=== PATIENT | male | born 1995 | race Caucasian/White ===

== ENCOUNTER 2017-06-21 22:03 | Emergency (ER) | payer MEDICAID, OTHER ==
[~2017-06-21 22:03] MED LIST: ALBU1AER INH; METH36 PO; WAL-10TA2 PO
[2017-06-21 22:04] VITALS: BP 139/76; PULSE 65; RESP 16; TEMP 98.7; O2SAT 97
[2017-06-22] MEDS ORDERED: LORazepam 1 MG TAB PO ONE (00:30)
[2017-06-22 00:53] LABS: AUTOMATED NEUTROPHIL # 4.8 TH/MM3 (1.8-7.7); BASOPHIL % 0.5 % (0.0-2.0); EOSINOPHIL # 0.1 TH/MM3 (0-0.4); EOSINOPHIL % 1.4 % (0.0-4.0); HEMATOCRIT 53.6 % (39.0-51.0); LYMPH % 25.6 % (9.0-44.0); LYMPHOCYTE # 1.9 TH/MM3 (1.0-4.8); MEAN CELL VOLUME 84.6 FL (80.0-100.0); MEAN CORPUSCULAR HEMOGLOBIN 29.5 PG (27.0-34.0); MEAN CORPUSCULAR HGB CONC 34.9 % (32.0-36.0); MONO % 7.1 % (0.0-8.0); NEUT % 65.4 % (16.0-70.0); PLATELET COUNT 228 TH/MM3 (150-450); RED BLOOD COUNT 6.33 MIL/MM3 (4.50-5.90); RED CELL DISTRIBUTION WIDTH 12.9 % (11.6-17.2); WHITE BLOOD COUNT 7.3 TH/MM3 (4.0-11.0)
[2017-06-22 00:57] LABS: HEMO FLAGS AUTO DIFF
--- NOTE | 2017-06-22 01:05 | PD ---
HPI Chief Complaint: Psychiatric Symptoms Time Seen by Provider: 00:52 Travel History International Travel<30 days: No Contact w/Intl Traveler<30days: No Traveled to known affect area: No History of Present Illness HPI 21-year-old white male presents to emergency department requesting psychological evaluation. He states that he's been feeling increasingly depressed and having bad thoughts. He states that he is been depressed for many years. He has attempted to hurt himself on several occasions. He states that he attempted overdose in the past, jump out of a tree, perform superficial cutting. He states that he has never been seen by a psychiatrist regarding these episodes. He claims that he had a relationship breakup which has worsened his symptoms. He states that he does not like himself. He does not feel that other people like him either. He would be better off if she were to be . He states that he has had many thoughts of how to hurt himself. He does not have one particular way. He denies any homicidal ideation. No toxic ingestions. He states that he is a healthy person and does not take any medications. He does not smoke, drink or do drugs. PENDING SALE TO [facility] Past Medical History Narrative Medical Asthma ADHD: Yes Blood Disorders: No Diminished Hearing: No Respiratory: Yes (see HPI) Immunizations Current: Yes Tetanus Vaccination: < 5 Years Past Surgical History Surgical History: No Previous Surgery Social History Alcohol Use: Yes Tobacco Use: No Substance Use: No Allergies-Medications (Allergen,Severity, Reaction): Coded Allergies: No Known Allergies (Unverified , 06/22/17) Reported Meds & Prescriptions Reported Meds & Active Scripts Active No Active Prescriptions or Reported Medications Review of Systems Except as stated in HPI: all other systems reviewed are Neg Psychiatric: Positive: Depression, Suicidal Ideations, Mood Disorder, No: Anxiety, Disorder of Thought, Substance Abuse, Homicidal Ideation Physical Exam Narrative GENERAL: Well-nourished, well-developed patient. SKIN: Warm and dry. HEAD: Normocephalic and atraumatic. EYES: No scleral icterus. No injection or drainage. ENT: No nasal drainage noted. Mucous membranes pink. Airway patent. NECK: Supple, trachea midline. Moves head freely without obvious discomfort. CARDIOVASCULAR: Regular rate and rhythm without murmurs, gallops, or rubs. RESPIRATORY: Breath sounds equal bilaterally. No accessory muscle use. GASTROINTESTINAL: Abdomen soft, non-tender, nondistended. EXTREMITIES: No cyanosis or edema. BACK: Nontender without obvious deformity. No CVA tenderness. NEURO: Patient is alert and oriented. no sensorimotor deficits. Nonfocal. Normal speech. PSYCH: No delusions. No auditory or visual hallucinations. Data Data Last Documented VS Vital Signs Date Time Temp Pulse Resp B/P Pulse Ox O2 Delivery O2 Flow Rate FiO2 06/21/17 22:04 98.7 65 16 139/76 97 Room Air Orders Complete Blood Count With Diff (06/22/17 00:28) Comprehensive Metabolic Panel (06/22/17 00:28) Psych Screen (06/22/17 00:28) Drug Screen, Random Urine (06/22/17 00:28) Alcohol (Ethanol) (06/22/17 00:28) Salicylates (Aspirin) (06/22/17 00:28) Tylenol (Acetaminophen) (06/22/17 00:28) Lorazepam (Ativan) (06/22/17 00:30) Labs Laboratory Tests Test 06/22/17 06/22/17 00:40 01:15 White Blood Count 7.3 TH/MM3 Red Blood Count 6.33 MIL/MM3 Hemoglobin 18.7 GM/DL Hematocrit 53.6 % Mean Corpuscular Volume 84.6 FL Mean Corpuscular Hemoglobin 29.5 PG Mean Corpuscular Hemoglobin 34.9 % Concent Red Cell Distribution Width 12.9 % Platelet Count 228 TH/MM3 Mean Platelet Volume 7.9 FL Neutrophils (%) (Auto) 65.4 % Lymphocytes (%) (Auto) 25.6 % Monocytes (%) (Auto) 7.1 % Eosinophils (%) (Auto) 1.4 % Basophils (%) (Auto) 0.5 % Neutrophils # (Auto) 4.8 TH/MM3 Lymphocytes # (Auto) 1.9 TH/MM3 Monocytes # (Auto) 0.5 TH/MM3 Eosinophils # (Auto) 0.1 TH/MM3 Basophils # (Auto) 0.0 TH/MM3 CBC Comment AUTO DIFF Differential Comment AUTO DIFF CONFIRMED Platelet Estimate NORMAL Platelet Morphology Comment NORMAL Sodium Level 142 MEQ/L Potassium Level 3.8 MEQ/L Chloride Level 101 MEQ/L Carbon Dioxide Level 31.3 MEQ/L Anion Gap 10 MEQ/L Blood Urea Nitrogen 11 MG/DL Creatinine 0.98 MG/DL Estimat Glomerular Filtration 99 ML/MIN Rate Random Glucose 80 MG/DL Calcium Level 9.4 MG/DL Total Bilirubin 2.3 MG/DL Aspartate Amino Transf 11 U/L (AST/SGOT) Alanine Aminotransferase 23 U/L (ALT/SGPT) Alkaline Phosphatase 73 U/L Total Protein 7.8 GM/DL Albumin 4.8 GM/DL Salicylates Level LESS THAN 1.7 MG/DL Acetaminophen Level LESS THAN 2.0 MCG/ML Ethyl Alcohol Level LESS THAN 3 MG/DL Urine Opiates Screen NEG Urine Barbiturates Screen NEG Urine Amphetamines Screen NEG Urine Benzodiazepines Screen NEG Urine Cocaine Screen NEG Urine Cannabinoids Screen NEG MDM Medical Decision Making Medical Screen Exam Complete: Yes Emergency Medical Condition: Yes Medical Record Reviewed: Yes Interpretation(s) Laboratory Tests Test 06/22/17 06/22/17 00:40 01:15 White Blood Count 7.3 TH/MM3 Red Blood Count 6.33 MIL/MM3 Hemoglobin 18.7 GM/DL Hematocrit 53.6 % Mean Corpuscular Volume 84.6 FL Mean Corpuscular Hemoglobin 29.5 PG Mean Corpuscular Hemoglobin 34.9 % Concent Red Cell Distribution Width 12.9 % Platelet Count 228 TH/MM3 Mean Platelet Volume 7.9 FL Neutrophils (%) (Auto) 65.4 % Lymphocytes (%) (Auto) 25.6 % Monocytes (%) (Auto) 7.1 % Eosinophils (%) (Auto) 1.4 % Basophils (%) (Auto) 0.5 % Neutrophils # (Auto) 4.8 TH/MM3 Lymphocytes # (Auto) 1.9 TH/MM3 Monocytes # (Auto) 0.5 TH/MM3 Eosinophils # (Auto) 0.1 TH/MM3 Basophils # (Auto) 0.0 TH/MM3 CBC Comment AUTO DIFF Differential Comment AUTO DIFF CONFIRMED Platelet Estimate NORMAL Platelet Morphology Comment NORMAL Sodium Level 142 MEQ/L Potassium Level 3.8 MEQ/L Chloride Level 101 MEQ/L Carbon Dioxide Level 31.3 MEQ/L Anion Gap 10 MEQ/L Blood Urea Nitrogen 11 MG/DL Creatinine 0.98 MG/DL Estimat Glomerular Filtration 99 ML/MIN Rate Random Glucose 80 MG/DL Calcium Level 9.4 MG/DL Total Bilirubin 2.3 MG/DL Aspartate Amino Transf 11 U/L (AST/SGOT) Alanine Aminotransferase 23 U/L (ALT/SGPT) Alkaline Phosphatase 73 U/L Total Protein 7.8 GM/DL Albumin 4.8 GM/DL Salicylates Level LESS THAN 1.7 MG/DL Acetaminophen Level LESS THAN 2.0 MCG/ML Ethyl Alcohol Level LESS THAN 3 MG/DL Urine Opiates Screen NEG Urine Barbiturates Screen NEG Urine Amphetamines Screen NEG Urine Benzodiazepines Screen NEG Urine Cocaine Screen NEG Urine Cannabinoids Screen NEG Differential Diagnosis MDM: High Differential diagnoses: Schizophrenia, schizoaffective disorder, bipolar, anxiety, depression, adjustment reaction, mood disorder NOS, ODD, depressive disorder NOS, dementia, dementia with agitation, psychosis NOS, substance induced mood disorder, intermittent explosive disorder, Asperger syndrome, infection,electrolyte abnormality, malingering. Narrative Course Mental health screening discussed with the patient. Psychiatric screen ordered. The patient's been medically cleared. This is medical clearance for psychiatric admission, mood disorder NOS Diagnosis Primary Impression: Medical clearance for psychiatric admission Additional Impression: Persistent mood [affective] disorder, unspecified Scripts No Active Prescriptions or Reported Meds Condition: Stable Tommie Hall Jun 22, 2017 01:05
[2017-06-22 01:14] LABS: ANION GAP 10 MEQ/L (5-15)
[2017-06-22 01:27] LABS: ALKALINE PHOSPHATASE 73 U/L (45-117); ALT (GPT) 23 U/L (9-52); AST (GOT) 11 U/L (15-39); BICARBONATE 31.3 MEQ/L (21.0-32.0); BLOOD UREA NITROGEN 11 MG/DL (7-18); CHLORIDE 101 MEQ/L (98-107); GLOMERULAR FILTRATION RATE 99 ML/MIN (>89); POTASSIUM 3.8 MEQ/L (3.5-5.1); SODIUM (NA) 142 MEQ/L (136-145); TOTAL BILIRUBIN ADULT 2.3 MG/DL (0.2-1.0)
[2017-06-22 01:28] LABS: ACETAMINOPHEN LESS THAN 2.0 MCG/ML (10.0-30.0)
[2017-06-22 01:31] LABS: AMPHETAMINE, URINE NEG (NEG); BARBITURATES, URINE NEG (NEG); COCAINE, URINE NEG (NEG)
[2017-06-22 02:44] LABS: PLATELET ESTIMATE SMEAR NORMAL (NORMAL); PLATELET MORPHOLOGY NORMAL (NORMAL); SCAN/DIFF AUTO DIFF CONFIRMED
[2017-06-22 06:13] VITALS: BP 106/68; PULSE 79; RESP 20; O2SAT 96
--- NOTE | 2017-06-22 09:37 | PD ---
Data Data Last Documented VS Vital Signs Date Time Temp Pulse Resp B/P Pulse Ox O2 Delivery O2 Flow Rate FiO2 06/22/17 06:13 79 20 106/68 96 Room Air 06/21/17 22:04 98.7 Orders Complete Blood Count With Diff (06/22/17 00:28) Comprehensive Metabolic Panel (06/22/17 00:28) Psych Screen (06/22/17 00:28) Drug Screen, Random Urine (06/22/17 00:28) Alcohol (Ethanol) (06/22/17 00:28) Salicylates (Aspirin) (06/22/17 00:28) Tylenol (Acetaminophen) (06/22/17 00:28) Lorazepam (Ativan) (06/22/17 00:30) Diet Regular Basic (06/22/17 Breakfast) Labs Laboratory Tests Test 06/22/17 06/22/17 00:40 01:15 White Blood Count 7.3 TH/MM3 Red Blood Count 6.33 MIL/MM3 Hemoglobin 18.7 GM/DL Hematocrit 53.6 % Mean Corpuscular Volume 84.6 FL Mean Corpuscular Hemoglobin 29.5 PG Mean Corpuscular Hemoglobin 34.9 % Concent Red Cell Distribution Width 12.9 % Platelet Count 228 TH/MM3 Mean Platelet Volume 7.9 FL Neutrophils (%) (Auto) 65.4 % Lymphocytes (%) (Auto) 25.6 % Monocytes (%) (Auto) 7.1 % Eosinophils (%) (Auto) 1.4 % Basophils (%) (Auto) 0.5 % Neutrophils # (Auto) 4.8 TH/MM3 Lymphocytes # (Auto) 1.9 TH/MM3 Monocytes # (Auto) 0.5 TH/MM3 Eosinophils # (Auto) 0.1 TH/MM3 Basophils # (Auto) 0.0 TH/MM3 CBC Comment AUTO DIFF Differential Comment AUTO DIFF CONFIRMED Platelet Estimate NORMAL Platelet Morphology Comment NORMAL Sodium Level 142 MEQ/L Potassium Level 3.8 MEQ/L Chloride Level 101 MEQ/L Carbon Dioxide Level 31.3 MEQ/L Anion Gap 10 MEQ/L Blood Urea Nitrogen 11 MG/DL Creatinine 0.98 MG/DL Estimat Glomerular Filtration 99 ML/MIN Rate Random Glucose 80 MG/DL Calcium Level 9.4 MG/DL Total Bilirubin 2.3 MG/DL Aspartate Amino Transf 11 U/L (AST/SGOT) Alanine Aminotransferase 23 U/L (ALT/SGPT) Alkaline Phosphatase 73 U/L Total Protein 7.8 GM/DL Albumin 4.8 GM/DL Salicylates Level LESS THAN 1.7 MG/DL Acetaminophen Level LESS THAN 2.0 MCG/ML Ethyl Alcohol Level LESS THAN 3 MG/DL Urine Opiates Screen NEG Urine Barbiturates Screen NEG Urine Amphetamines Screen NEG Urine Benzodiazepines Screen NEG Urine Cocaine Screen NEG Urine Cannabinoids Screen NEG MDM Supervised Visit with MARTIR: Yes Narrative Course The history, exam, and medical decision-making in the associated midlevel provider note were completed with my assistance. I reviewed and agree with the findings presented. I attest that I had a [id number] encounter with the patient on the same day, and personally performed and documented my assessment and findings in the medical record. *My assessment and Findings: I assessed this patient in the morning. He really wants to go home. He says that he has been feeling depressed but he's been having these feelings for years. He denies any current suicidal ideation. He says he [place] the [place] and he doesn't want to miss them, suggesting that his future oriented. He also says that his mom works for [employer] and she has access to a lot of psychiatric resources and he plans on talking to her later today about how he's been feeling. I don't think I can place this patient under a Ch[place]han act or hold him against his will. He appears to have decision-making capacity and he does not appear psychotic. The patient will be discharged and was provided with outpatient psychiatric resources. Diagnosis Primary Impression: Adjustment reaction Qualified Code: F43.21 - Adjustment disorder with depressed mood Patient Instructions: General Instructions Additional Instruction: If you have thoughts of hurting herself or feeling unsafe please return to the emergency department immediately. It is important that you see a psychiatrist as an outpatient. Med/Other Pt SpecificInfo: No Change to Meds Scripts No Active Prescriptions or Reported Meds Disposition: DISCHARGE HOME Condition: Stable Jacqueline Mariee MD Jun 22, 2017 09:36
== END 2017-06-22 11:02 | disposition home or self-care (01) ==
LOC: NEPD 22:03
DX: Z02.89 Encounter for other administrative examinations (principal); F39 Unspecified mood [affective] disorder; F43.21 Adjustment disorder with depressed mood; Z87.09 Personal history of other diseases of the respiratory system; Z86.59 Personal history of other mental and behavioral disorders
CPT/HCPCS: 80053; 80307; 85025; 99284